=== PATIENT | male | born 1950 | race Caucasian/White ===

== ENCOUNTER 2020-08-19 16:50 | Emergency (ER) | payer OTHER, MEDICARE ==
[~2020-08-19] VITALS: Ht 180.3 cm; Wt 86.2 kg
[2020-08-19 17:20] LABS: Calcium, Ionized (POC) 1.21 mmol/L (1.10-1.46); Chloride (POC) 103 mmol/L (98-108); Creatinine (POC) 0.8 mg/dL (0.8-1.3); Glucose (ISTAT POC) 87 mg/dL (70-99); Hemoglobin (POC) 13.3 g/dL (13.5-17.5); Potassium (POC) 4.4 mmol/L (3.5-5.5); Sodium (POC) 139 mmol/L (135-148); Total CO2 (POC) 29 mmol/L (21-32)
[2020-08-19] MEDS ORDERED: CYCL10 PO (18:08)
== END 2020-08-19 18:11 | disposition home or self-care (01) ==
LOC: ER 16:50
PROVIDERS: Emergency Medicine
DX: S50.812A Abrasion of left forearm, initial encounter (principal); Z98.1 Arthrodesis status; V43.52XA Car driver injured in collision with other type car in traffic accident, initial encounter; Y92.410 Unspecified street and highway as the place of occurrence of the external cause
CPT/HCPCS: 71045; 80047; 85014; 93005; 93010; 99285-25